=== PATIENT | female | born 1975 | race Caucasian/White ===

== ENCOUNTER 2017-05-22 05:52 | Inpatient (IN) | payer OTHER ==
[~2017-05-22] VITALS: Ht 165.1 cm; Wt 80.0 kg
[2017-05-22] MEDS ORDERED: LACTATED RINGERS 1,000 ML IV SCH ×2 (05:54→06:00)
[2017-05-22] MEDS ORDERED: OXYTOCIN 30U/ 0.9% NaCL 500ML 500 ML IV SCH (05:54)
[2017-05-22] MEDS ORDERED: NEWBORN KIT ONE (05:56)
[2017-05-22] MEDS ORDERED: SODIUM CITRATE/CITRIC ACID 30 ML UDC ONE ×2 (05:57→07:48)
[2017-05-22] MEDS ORDERED: METOCLOPRAMIDE 5 MG/ML, 2ML ONE ×2 (05:58→07:48)
[2017-05-22] MEDS ORDERED: METOCLOPRAMIDE 5 MG/ML, 2ML IV ONE (06:00)
[2017-05-22] MEDS ORDERED: SODIUM CITRATE/CITRIC ACID 30 ML UDC PO ONE (06:00)
[2017-05-22] MEDS ORDERED: LACTATED RINGERS 1,000 ML IVBOLUS ONE (06:00)
[2017-05-22 06:18] LABS: HEMATOCRIT 39.2 % (34.6-47.8); HEMOGLOBIN 13.3 g/dL (11.7-16.4); WHITE BLOOD COUNT 9.1 x10^3/uL (3.4-10)
[2017-05-22] MEDS ORDERED: FENTANYL PF 100 MCG/2ML ONE (07:14)
[2017-05-22] MEDS ORDERED: MIDAZOLAM 1 MG/ML, 2ML IV PRN (07:30)
[2017-05-22] MEDS ORDERED: HYDROmorphone 1 MG/ML, 1ML IV PRN (07:30)
[2017-05-22] MEDS ORDERED: FENTANYL PF 100 MCG/2ML IV PRN (07:30)
[2017-05-22] MEDS ORDERED: MEPERIDINE/PF 25MG/0.5ML IVPush PRN (07:30)
[2017-05-22] MEDS ORDERED: PROMETHAZINE 25 MG/ML, 1ML IV PRN (07:30)
[2017-05-22] MEDS ORDERED: hydrALAzine 20 MG/ML, 1ML IV PRN (07:30)
[2017-05-22] MEDS ORDERED: ONDANSETRON 2MG/ML, 2ML IVPush PRN (07:30)
[2017-05-22] MEDS ORDERED: EPHEDRINE 50 MG/ML, 1ML IVPush PRN (07:30)
[2017-05-22] MEDS ORDERED: OXYcodone 5 MG/5 ML ORAL.SOL UDC PO PRN (07:30)
[2017-05-22] MEDS ORDERED: LABETALOL 5MG/ML, 20ML IV PRN (07:30)
[2017-05-22] MEDS ORDERED: HYDROcodone/APAP 7.5-325MG/15ML UDC PO PRN (07:30)
[2017-05-22] MEDS ORDERED: OXYTOCIN 30U/ 0.9% NaCL 500ML 500 ML ONE (07:33)
[2017-05-22] MEDS ORDERED: DEXAMETHASONE 4 MG/ML, 1ML ONE (07:48)
[2017-05-22] MEDS ORDERED: CEFAZOLIN 1,000 MG ONE (07:48)
[2017-05-22] MEDS ORDERED: KETOROLAC 30 MG/1 ML ONE (07:48)
[2017-05-22] MEDS ORDERED: ONDANSETRON 2MG/ML, 2ML ONE (07:48)
[2017-05-22] MEDS ORDERED: OXYTOCIN 10 UNITS/ML, 1ML ONE ×2 (07:48)
[2017-05-22] MEDS: OXYTOCIN 30U/ 0.9% NaCL 500ML 500 ML IV SCH ×2 (09:44→13:27)
[2017-05-22] MEDS: LACTATED RINGERS 1,000 ML IV SCH ×5 (09:44→21:45)
[2017-05-22] MEDS ORDERED: morphine SULFATE 10 MG/ML, 1ML IVPush PRN ×2 (10:00)
[2017-05-22] MEDS: PRENATAL VIT/IRON/FA 1 EACH TABLET PO SCH (10:00)
[2017-05-22] MEDS ORDERED: ONDANSETRON 2MG/ML, 2ML IV PRN (10:00)
[2017-05-22] MEDS ORDERED: SIMETHICONE 80 MG CHEW TAB PO PRN (10:00)
[2017-05-22] MEDS ORDERED: CALCIUM CARBONATE 500 MG TAB.CHEW PO PRN (10:00)
[2017-05-22] MEDS ORDERED: METOCLOPRAMIDE 5 MG/ML, 2ML IV PRN (10:00)
[2017-05-22] MEDS ORDERED: MEPERIDINE/PF 50 MG/ML IVPush PRN (10:00)
[2017-05-22] MEDS ORDERED: MISOPROSTOL 200 MCG TABLET PR PRN (10:00)
[2017-05-22] MEDS ORDERED: OXYcodone/APAP 5/325MG TABLET PO PRN ×2 (10:00)
[2017-05-22 11:20] VITALS: BP 108/62
[2017-05-22] MEDS: KETOROLAC 30 MG/1 ML IV SCH ×2 (14:59→20:29)
[2017-05-22 16:16] VITALS: BP 107/60
[2017-05-22 17:23] LABS: HEMATOCRIT 33.3 % (34.6-47.8); HEMOGLOBIN 11.3 g/dL (11.7-16.4); WHITE BLOOD COUNT 14.2 x10^3/uL (3.4-10)
[2017-05-22 17:24] LABS: DIFF TOTAL CELLS COUNTED 100 CELL DIFF
[2017-05-22 18:09] LABS: VERIFY COUNTS? YES
[2017-05-22 19:00] VITALS: BP 121/68
[2017-05-23 00:05] VITALS: BP 106/58
[2017-05-23] MEDS: KETOROLAC 30 MG/1 ML IV SCH ×4 (02:38→20:30)
[2017-05-23 04:00] VITALS: BP 95/63
[2017-05-23] MEDS: LACTATED RINGERS 1,000 ML IV SCH ×4 (05:44→17:44)
[2017-05-23] MEDS: OXYTOCIN 30U/ 0.9% NaCL 500ML 500 ML IV SCH ×2 (05:44→15:44)
[2017-05-23] MEDS: DOCUSATE 100 MG CAPSULE PO PRN ×2 (09:04→20:17)
[2017-05-23] MEDS: PRENATAL VIT/IRON/FA 1 EACH TABLET PO SCH (09:04)
[2017-05-23 20:15] VITALS: BP 110/65
[2017-05-23] MEDS: IBUPROFEN 600 MG TABLET PO PRN (20:17)
[2017-05-24] MEDS: OXYTOCIN 30U/ 0.9% NaCL 500ML 500 ML IV SCH ×2 (01:44→11:44)
[2017-05-24] MEDS: LACTATED RINGERS 1,000 ML IV SCH ×4 (01:44→11:44)
[2017-05-24] MEDS: KETOROLAC 30 MG/1 ML IV SCH ×2 (02:30→08:30)
[2017-05-24] MEDS: IBUPROFEN 600 MG TABLET PO PRN (02:55)
[2017-05-24 07:05] VITALS: BP 109/64
[2017-05-24] MEDS: DOCUSATE 100 MG CAPSULE PO PRN (08:36)
[2017-05-24] MEDS: PRENATAL VIT/IRON/FA 1 EACH TABLET PO SCH (08:36)
[2017-05-24] MEDS ORDERED: IBUP-1222 PO (08:43)
[2017-05-24] MEDS ORDERED: OXYC-302 PO (08:44)
[2017-05-24] MEDS ORDERED: DOCU-131 PO (08:47)
== END 2017-05-24 13:18 | disposition home or self-care (01) | DRG 766 ==
LOC: LDIP 05:52 → 2NW 11:19
PROVIDERS: ADMIT Obstetrics & Gynecology; ATTEND Obstetrics & Gynecology
PROC: 10D00Z1 Extraction of Products of Conception, Low, Open Approach (ICD-10-PCS; principal; 2017-05-22)
DX: O34.211 Maternal care for low transverse scar from previous cesarean delivery (principal); Z37.0 Single live birth; Z53.29 Procedure and treatment not carried out because of patient's decision for other reasons; Z3A.37 37 weeks gestation of pregnancy
CPT/HCPCS: 36415; 85025; 86850; 86900; 86923; J0690; J1100; J1885; J2405; J3010; J2590; J2765; J7120